=== PATIENT | female | born 1980 | race Hispanic/Latino ===

== ENCOUNTER 2025-10-28 18:01 | Emergency (ER) | payer BC, SELFPAY ==
[~2025-10-28 18:01] MED LIST: Iopamidol 370 76% 100 ML VIAL ONE
[2025-10-28 19:28] LABS: ALT (SGPT) 54 U/L (Less than 34); AST (SGOT) 86 U/L (11-34); Albumin 4.2 g/dL (3.1-4.5); Alkaline Phosphatase 55 U/L (40-110); Anion Gap 17 mmol/L (10-20); BUN (Urea Nitrogen) 5 mg/dL (7.0-18.7); Bilirubin, Total 0.3 mg/dL (0.3-1.2); Calc. Creatinine Clearance 0 mL/min (70-130); Calcium 8.6 mg/dL (7.8-10.44); Carbon Dioxide 21 mmol/L (22-29); Chloride 103 mmol/L (98-107); Globulin 2.7 g/dL (2.4-3.5); Glucose 93 mg/dL (70-105); Lipase 26 U/L (8-78); Potassium 2.9 mmol/L (3.5-5.1); Sodium 138 mmol/L (136-145)
[2025-10-28] MEDS ORDERED: Pantoprazole 40 MG VIAL ONE (19:31)
[2025-10-28] MEDS ORDERED: Ondansetron PF 4 MG/2 ML Vial ONE ×2 (19:32→23:50)
[2025-10-28] MEDS ORDERED: Ketorolac Tromethamine 30 MG (1 mL) VIAL ONE (19:32)
[2025-10-28 19:47] LABS: BHCG - Serum Negative (NEGATIVE); Pregs Control Background? CLEAR/WHITE (CLR/WHITE); Pregs Control Bar Appear? YES (CONTROL BAR)
[2025-10-28 19:57] LABS: #Basophils 0.1 thou/uL (0.0-0.2); #Eosinophils 0.1 thou/uL (0.0-0.7); #Lymphocytes 1.4 thou/uL (1.20-3.40); #Monocytes 0.5 thou/uL (0.11-0.59); #Neutrophils 3.1 thou/uL (1.40-6.50); %Basophils 1.7 % (0.0-1.0); %Eosinophils 1.1 % (0.0-10.0); %Lymphocytes 26.6 % (21.0-51.0); %Monocytes 9.0 % (0.0-10.0); %Neutrophils 61.7 % (42.0-75.0); Hematocrit 38.1 % (36.0-47.0); Hemoglobin 12.5 g/dL (12.0-16.0); Mean Corpuscular Hemoglobin 33.3 pg (27.0-31.0); Mean Corpuscular Volume 101.2 fl (78.0-98.0); Platelet Count 178 10x3/uL (130-400); Red Blood Cell (RBC) Count 3.77 mill/uL (4.20-5.40); White Blood Cell (WBC) Count 5.1 10x3/uL (4.8-10.8)
[2025-10-28 20:16] LABS: Glucose, Urine (Dipstick) Negative (Negative); Leukocyte Negative (Negative); Protein, Urine (Dipstick) Negative (Neg-Trace); Specific Gravity, Urine 1.010 (1.005-1.030)
[2025-10-28 20:26] LABS: Pregnancy Test - Urine (BHCG) Negative (Negative); Pregu Control Bar Appear? YES (CONTROL BAR)
[2025-10-28 20:27] LABS: Pregu Control Background? CLEAR/WHITE (CLR/WHITE)
[2025-10-28 21:09] LABS: CAUTI Indications for Culture Pelvic or flank pain; RBC/HPF 0-3 HPF (0-3); Urine Culture Reflex No No; WBC/HPF 0-3 HPF (0-3)
[2025-10-28] MEDS ORDERED: Lidocaine Viscous Sol 2% 15 ml UD Cup ONE (23:16)
[2025-10-28] MEDS ORDERED: Mag-Al 1200 mg/1200 mg/30 ML UDCUP ONE (23:16)
[2025-10-28] MEDS ORDERED: Ciprofloxacin 500 MG TAB ONE (23:50)
== END 2025-10-29 00:57 | disposition home or self-care (01) ==
LOC: MADERS 18:01
DX: K52.9 Noninfective gastroenteritis and colitis, unspecified (principal); A05.9 Bacterial foodborne intoxication, unspecified; E86.0 Dehydration; E86.1 Hypovolemia; E87.6 Hypokalemia; Z79.899 Other long term (current) drug therapy
CPT/HCPCS: 36415; 74177; 80053; 81001; 81025; 83605; 83690; 84703; 85025; 96361; 96374; 96375; 96376; J1885; J2405; J2470; J2919; J7030; Q9967

== ENCOUNTER 2025-11-01 21:46 | Emergency (ER) | payer BC ==
[2025-11-01] MEDS ORDERED: Ondansetron PF 4 MG/2 ML Vial ONE (22:30)
[2025-11-01 22:34] LABS: Hematocrit 44.9 % (36.0-47.0); Hemoglobin 14.4 g/dL (12.0-16.0); MDiff Complete? YES; Mean Corpuscular Hemoglobin 32.8 pg (27.0-31.0); Mean Corpuscular Volume 102.5 fl (78.0-98.0); Platelet Count 341 10x3/uL (130-400); Red Blood Cell (RBC) Count 4.38 mill/uL (4.20-5.40); White Blood Cell (WBC) Count 6.0 10x3/uL (4.8-10.8)
[2025-11-01 22:52] LABS: ALT (SGPT) 49 U/L (Less than 34); AST (SGOT) 43 U/L (11-34); Albumin 4.8 g/dL (3.1-4.5); Alkaline Phosphatase 49 U/L (40-110); Anion Gap 16 mmol/L (10-20); BUN (Urea Nitrogen) 8 mg/dL (7.0-18.7); Bilirubin, Total 0.4 mg/dL (0.3-1.2); Calc. Creatinine Clearance 0 mL/min (70-130); Calcium 9.7 mg/dL (7.8-10.44); Carbon Dioxide 22 mmol/L (22-29); Chloride 104 mmol/L (98-107); Globulin 2.8 g/dL (2.4-3.5); Glucose 94 mg/dL (70-105); Magnesium 2.3 mg/dL (1.6-2.6); Potassium 3.4 mmol/L (3.5-5.1); Sodium 139 mmol/L (136-145)
[2025-11-01] MEDS ORDERED: Dicyclomine 10 MG CAP ONE (23:05)
== END 2025-11-01 23:42 | disposition home or self-care (01) ==
LOC: MADERS 21:46
DX: R19.7 Diarrhea, unspecified (principal); R11.2 Nausea with vomiting, unspecified; F90.9 Attention-deficit hyperactivity disorder, unspecified type
CPT/HCPCS: 80053; 83735; 85025; 96361; 96374; J2405; J7030